=== PATIENT | female | born 1960 | race Caucasian/White ===

== ENCOUNTER 2016-07-31 12:07 | Emergency (ER) | payer BC, OTHER ==
[2016-07-31 12:49] VITALS: BP 108/71
--- NOTE | 2016-07-31 12:56 | UC ---
Dizzy HPI HPI Summary: ONSET LAST NOAH SHE FELT SLIGHTLY DIZZY. WHEN SHE LAYED DOWN DIZZINESS WAS MUCH WORSE. FELT NAUSEATED AND LIGHTHEADED, DIAPHORETIC AT THAT TIME. NO , CHEST PAIN OR SOB. PT ADDS SHE FELL LAST WEEK AND HIT HER HEAD ON THE ICE. NO LOC. HAS HAD A MILD HEADACHE ON AND OFF SINCE. Sx staretd when she layed down to read to her grandson last night. room spinning dizziness. no lightheaded or pre- syncopal. Sx recurred this morning when she first woke up and rolled over in bed. never had this before. denies any URI. Last week slipped on the ice and fell back on her head. was not dizzy at that time. no bleeding or bruising. OLMOS is just dull. no oncrease in forgetfullness. no n/v until the room spinning occurred. she did not go to the Drs for this. she does not have any sx now of dizziness. - History Of Current Complaint Chief Complaint: UCDizziness Stated Complaint: DIZZINESS Time Seen by Provider: 07/31/16 12:53 - Allergies/Home Medications Allergies/Adverse Reactions: Allergies Allergy/AdvReac Type Severity Reaction Status Date / Time No Known Allergies Allergy Verified 07/31/16 12:29 Home Medications: Home Medications Calcium 600 mg PO 07/31/16 [History] Magnesium 500 mg PO BID 07/31/16 [History Confirmed 07/31/16] PMH/Surg Hx/FS Hx/Imm Hx Previously Healthy: Yes - Surgical History Surgical History: None - Family History Known Family History: Positive: Cardiac Disease - Social History Alcohol Use: Rare Substance Use Type: None Smoking Status (MU): Never Smoked Tobacco Review of Systems Constitutional: Negative Skin: Negative Eyes: Negative ENT: Negative Respiratory: Negative Cardiovascular: Negative Gastrointestinal: Negative Genitourinary: Negative Motor: Negative Neurovascular: Negative Musculoskeletal: Negative Neurological: Headache - dull, mild 1/10., Other - room spinning Psychological: Negative All Other Systems Reviewed And Are Negative: Yes Physical Exam Triage Information Reviewed: Yes Appearance: Well-Appearing - very pleasant, No Pain Distress, Well-Nourished Vital Signs: Initial Vital Signs Temp 98.1 F 07/31/16 12:32 Pulse 58 07/31/16 12:32 Resp 18 01/05/17 12:32 BP 108/71 07/31/16 12:32 Pulse Ox 96 07/31/16 12:32 Vital Signs Reviewed: Yes Eye Exam: Normal ENT Exam: Normal, Other - Skull is NC/AT, no bleeding, abrasions, scars, bruising or swelling. ENT: Positive: Normal ENT inspection, Pharynx normal, TMs normal Dental Exam: Normal Neck exam: Normal Neck: Positive: Supple, Nontender, No Lymphadenopathy Respiratory Exam: Normal Respiratory: Positive: Lungs clear, Normal breath sounds, No respiratory distress, No accessory muscle use Cardiovascular Exam: Normal Cardiovascular: Positive: RRR, No Murmur, Pulses Normal, Brisk Capillary Refill Abdominal Exam: Normal Abdomen Description: Positive: Nontender, Soft Bowel Sounds: Positive: Present Musculoskeletal Exam: Normal Neurological Exam: Normal Neurological: Positive: Alert, Muscle Tone Normal, Other: - Cr III-XII intact, rhomberg neg, neg pronator drift, strength 5/5 UE and LE b/l and eqaul. Psychological Exam: Normal Skin Exam: Normal Dizzy Course/Dx - Course Course Of Treatment: BPPV. discussed and showed exercises. We did discuss CT head bc fall and dull mild OLMOS that remains but she declines. She will f/u with her PCP next week and determine if it is necessary at that time. She will f/u in ER if sx worsen. She understood me well adn is agreeable with plan. - Differential Dx/Diagnosis Differential Diagnosis/HQI/PQRI: Benign Paroxysmal Positional Vertigo, Vasovagal Reaction, Other - concussion Provider Diagnoses: Benign positional vertigo, OLMOS, fall Discharge - Discharge Plan Condition: Stable Disposition: HOME Prescriptions: Meclizine HCl [Motion Sickness Relief-] 25 mg PO Q4H PRN #20 tab PRN Reason: Dizziness Patient Education Materials: Benign Paroxysmal Positional Vertigo (ED) Referrals: Heath Arnold MD [Medical Doctor] - 4 Days Additional Instructions: No driving or operating machinery or holding young children until your symptoms completely resolve. We talked about exercises that you can do. You should discuss possible CT brain next week with your PCP if your OLMOS, dizziness persists.
== END 2016-07-31 13:26 | disposition home or self-care (01) ==
LOC: UCCORT 12:07
DX: H81.10 Benign paroxysmal vertigo, unspecified ear (principal); R51 Headache; Z91.81 History of falling; R00.1 Bradycardia, unspecified
CPT/HCPCS: 93005; 99211; G0463

== ENCOUNTER 2016-10-02 16:29 | Emergency (ER) | payer OTHER ==
[2016-10-02 16:58] VITALS: BP 113/60
--- NOTE | 2016-10-02 17:43 | UC ---
Throat Pain/Nasal Eric HPI - HPI Summary HPI Summary: complaint of sore throat that started 2 days ago left ear pain intermittent headaches denies fever but had chills last night taking aleve without relief - History of Current Complaint Chief Complaint: UCRespiratory Stated Complaint: ST/EAR PAIN Time Seen by Provider: 10/02/16 17:37 Hx Obtained From: Patient - Allergies/Home Medications Allergies/Adverse Reactions: Allergies Allergy/AdvReac Type Severity Reaction Status Date / Time No Known Allergies Allergy Verified 10/02/16 16:53 PMH/Surg Hx/FS Hx/Imm Hx Previously Healthy: Yes - Surgical History Surgical History: None - Family History Known Family History: Positive: None, Cardiac Disease - Social History Occupation: Employed Full-time Lives: With Family Alcohol Use: Rare Substance Use Type: None Smoking Status (MU): Never Smoked Tobacco - Immunization History Most Recent Influenza Vaccination: None Most Recent Tetanus Shot: UTD Most Recent Pneumonia Vaccination: UTD Review of Systems Constitutional: Chills Skin: Negative Eyes: Negative ENT: Sore Throat, Ear Ache Respiratory: Negative Cardiovascular: Negative Gastrointestinal: Negative Genitourinary: Negative Motor: Negative Neurovascular: Negative Musculoskeletal: Negative Neurological: Negative Psychological: Negative All Other Systems Reviewed And Are Negative: Yes Physical Exam Triage Information Reviewed: Yes Appearance: No Pain Distress, Well-Nourished Vital Signs: Initial Vital Signs Temp 99.1 F 10/02/16 16:54 Pulse 72 10/02/16 16:54 Resp 18 10/02/16 16:54 BP 113/60 10/02/16 16:54 Pulse Ox 95 10/02/16 16:54 Vital Signs Reviewed: Yes Eyes: Positive: Conjunctiva Clear ENT: Positive: Pharyngeal erythema, Nasal congestion, Nasal drainage, TMs normal , Tonsillar swelling, Tonsillar exudate Neck: Positive: No Lymphadenopathy Respiratory: Positive: Lungs clear, Normal breath sounds, No respiratory distress Cardiovascular: Positive: RRR, No Murmur, Pulses Normal Abdomen Description: Positive: Nontender, Soft Bowel Sounds: Positive: Present Musculoskeletal: Positive: No Edema Neurological: Positive: Alert Psychological Exam: Normal Skin Exam: Normal Throat Pain/Nasal Course/Dx - Differential Dx/Diagnosis Differential Diagnosis/HQI/PQRI: Pharyngitis, Tonsillitis Provider Diagnoses: pharyngitis Discharge - Discharge Plan Condition: Stable Disposition: HOME Patient Education Materials: Pharyngitis (ED) Additional Instructions: PHARYNGITIS (Sore Throat) What is Pharyngitis? The medical name for a sore throat is Pharyngitis. It is caused by an infection or irritation of your throat or tonsils. The infection can be caused by a virus or by bacteria. Not everyone with Pharyngitis needs antibiotics. Antibiotics will not make viral infections better, and they will not help a sore throat caused by irritation. Symptoms May Include: Sore throat Swelling of the glands in the neck Trouble or pain with swallowing Fever Headache Cough Extreme tiredness Ear pain Treatment Recommendations: Gargle every few hours with a solution of 1/4 teaspoon of salt dissolved in 1/ 2 cup of warm water. Drink plenty of warm beverages, like tea with lemon, (with or without honey) and soup. You may eat and drink cold foods and liquids like frozen yogurt, popsicles, and ice water if that makes your throat feel better. The goal is to keep you well hydrated. Use a "cool-mist" vaporizer or humidifier in the room where you spend most of your time. If you get a sore throat often, consider adding an electronic air filter and humidifier to your furnace system. Don't smoke. Do not eat spicy foods. Take medicine exactly as prescribed. If you do not think it is helping, call your healthcare provider. Do not increase how much or how often you take it without getting their OK first. Non-prescription anti-inflammatory medicine like ibuprofen (Motrin, Advil) or naproxen (Aleve) may help lessen the pain. You should not take these medicines if you have had bleeding in your stomach in the past. Acetaminophen ( Tylenol) is another choice of medicine that may help the pain. If pain medicine that makes you tired or sleepy or contains narcotics is prescribed, you should not drink, drive, or participate in any other activities that you need to be clear-headed for. Please keep all medicines out of the reach of children. Do not get in close contact with anyone you know who has a sore throat. Use throat lozenges (Cepostat, Irma, etc.) or suck on hard candy for temporary relief of the pain with swallowing. (Do not give to children under age 5.) Call Your Doctor or Return Here IF: Your symptoms do not start to get better within 2 days or you become worse. You have a fever over 101.0 F orally. You cant swallow liquids or saliva. You are drooling. You start to have trouble breathing. You start to have a rash. You start to have a stiff neck. You start to have pain in your chest. You start to have any symptoms that are new or worry you.
== END 2016-10-02 18:24 | disposition home or self-care (01) ==
LOC: UCCORT 16:29
DX: J02.9 Acute pharyngitis, unspecified (principal); H92.02 Otalgia, left ear
CPT/HCPCS: 87651; 99212; G0463

== ENCOUNTER 2017-11-04 11:43 | Emergency (ER) | payer OTHER ==
[2017-11-04 12:00] VITALS: BP 118/65
--- NOTE | 2017-11-04 12:12 | UC ---
FLU HPI - HPI Summary HPI Summary: Chills muscle aches, cough, congestion and sore throat since Thursday. She denies chronic disease or lung disease. - History of Current Complaint Chief Complaint: UCGeneralIllness Stated Complaint: EARACHE, FEVER Time Seen by Provider: 11/04/17 11:51 Hx Obtained From: Patient Onset/Duration: Gradual Onset, Lasting Days Severity Currently: Moderate Severity Initially: Moderate Pain Intensity: 7 Associated Signs & Symptoms: Positive: Fever - subjective., Myalgia, Cough, Sore Throat, Nasal Congestion, Headache. Negative: Vomiting, Diarrhea Related Hx: Possible Flu/Infectious Exposure - Allergy/Home Medications Allergies/Adverse Reactions: Allergies Allergy/AdvReac Type Severity Reaction Status Date / Time No Known Allergies Allergy Verified 10/02/16 16:53 Home Medications: Home Medications Ibuprofen/Pseudoephedrine HCl [Advil Cold & Sinus Caplet] 1 each PO Q6H [History Confirmed 11/04/17] PMH/Surg Hx/FS Hx/Imm Hx Previously Healthy: Yes - Surgical History Surgical History: Yes Surgery Procedure, Year, and Place: ACCESSORY NIPPLE REMOVED - Family History Known Family History: Positive: None, Cardiac Disease - Social History Lives: With Family Alcohol Use: Occasionally Substance Use Type: None Smoking Status (MU): Never Smoked Tobacco - Immunization History Most Recent Influenza Vaccination: None Most Recent Tetanus Shot: UTD Most Recent Pneumonia Vaccination: UTD Review of Systems Constitutional: Fever, Chills, Fatigue Respiratory: Cough Genitourinary: Negative Musculoskeletal: Myalgia Neurological: Headache All Other Systems Reviewed And Are Negative: Yes Physical Exam Triage Information Reviewed: Yes Appearance: Well-Appearing, No Pain Distress, Well-Nourished Vital Signs: Initial Vital Signs Temp 98.7 F 11/04/17 11:54 Pulse 104 11/04/17 11:54 Resp 16 11/04/17 11:54 BP 118/65 11/04/17 11:54 Pulse Ox 97 11/04/17 11:54 Vital Signs Reviewed: Yes Eyes: Positive: Conjunctiva Clear. Negative: Conjunctiva Inflamed ENT: Positive: Normal ENT inspection, Hearing grossly normal, Pharyngeal erythema, Nasal congestion, TMs normal, Uvula midline. Negative: Nasal drainage , Tonsillar swelling, Tonsillar exudate, Trismus, Muffled voice, Sinus tenderness Neck: Positive: Supple, Nontender, No Lymphadenopathy Respiratory: Positive: Lungs clear, Normal breath sounds, No respiratory distress, No accessory muscle use, Respiratory distress, Decreased breath sounds , Accessory muscle use, Crackles, Rhonchi, Stridor. Negative: Wheezing Cardiovascular: Positive: No Murmur, Pulses Normal, Brisk Capillary Refill Abdomen Description: Positive: Soft. Negative: Distended, Guarding Musculoskeletal: Positive: Strength Intact, ROM Intact, No Edema Neurological: Positive: Alert, Muscle Tone Normal. Negative: Fatigued Psychological: Positive: Age Appropriate Behavior Skin: Negative: rashes Flu Course/Dx - Course Course Of Treatment: She is non toxic, exam is benign, and vitals wnl. 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 supportive care described in detail. - Differential Dx/Diagnosis Provider Diagnoses: viral illness. Discharge - Sign-Out/Discharge Documenting (check all that apply): Discharge - Discharge Plan Condition: Good Disposition: HOME Patient Education Materials: Pharyngitis (ED) Referrals: Milka Damian [Primary Care Provider] - Additional Instructions: Supportive care as we described. - Billing Disposition and Condition Condition: GOOD Disposition: HOME
== END 2017-11-04 12:40 | disposition home or self-care (01) ==
LOC: UCCORT 11:43
DX: B34.9 Viral infection, unspecified (principal)
CPT/HCPCS: 87502; 99211; G0463